=== PATIENT | male | born 1960 | race Caucasian/White ===

== ENCOUNTER 2018-02-18 12:37 | Inpatient (IN) | payer SELFPAY ==
[~2018-02-18] VITALS: Ht 162.6 cm; Wt 54.9 kg
[2018-02-18 15:22] LABS: CHLORIDE 85 mEq/L (98-107)
[2018-02-18 15:24] LABS: HEMATOCRIT. 28.7 % (42.0-52.0); MEAN CORPUSCULAR HEMOGLOBIN 34.8 pg (28.0-32.0); MEAN CORPUSCULAR VOLUME 100.1 fL (80.0-94.0); MEAN PLATELET VOLUME 9.9 fl (7.4-10.4); PLATELET 161 x1000/uL (130-400); RED BLOOD CELL COUNT 2.87 mill/uL (4.7-6.1); RED CELL DISTRIBUTION WIDTH 14.2 % (11.6-14.6)
[2018-02-18 15:26] LABS: ETHANOL BLOOD 37 mg/dL
[2018-02-18 16:56] LABS: CLARITY URINE CLEAR (CLEAR); COLOR URINE DARK YELLOW (YELLOW); KETONES URINE 4+ (NEGATIVE); LEUKOCYTE ESTERASE URINE NEGATIVE (NEGATIVE); NITRITE URINE NEGATIVE (NEGATIVE); OCCULT BLOOD URINE 3+ (NEGATIVE); PH URINE 5.5 (4.5-8.0); PROTEIN URINE 2+ (NEGATIVE)
[2018-02-18 17:10] LABS: *AMPHETAMINES SCREEN URINE NEGATIVE (NEGATIVE); *BARBITURATES SCREEN URINE NEGATIVE (NEGATIVE); *BENZODIAZEPINES SCREEN URINE NEGATIVE (NEGATIVE); *COCAINE SCREEN URINE NEGATIVE (NEGATIVE); METHADONE URINE SCREEN NEGATIVE (NEGATIVE); OPIATES URINE SCREEN NEGATIVE (NEGATIVE)
[2018-02-18 17:11] LABS: CANNABINOID URINE SCREEN NEGATIVE (NEGATIVE); PHENCYCLIDINE URINE SCREEN NEGATIVE (NEGATIVE)
[2018-02-18 17:39] LABS: PLATELET ESTIMATE NORMAL
[2018-02-18] MEDS ORDERED: LORAZEPAM 2MG/ML CPJ IV ONE ×2 (19:30→20:30)
[2018-02-18] MEDS ORDERED: POTASSIUM CHLORIDE 20MEQ TABLET SR PO ONE (20:30)
[2018-02-18] MEDS ORDERED: FOLIC ACID 1 MG, THIAMINE HCL 100 MG, MVI, ADULT NO.1 10 ML in DEXTROSE 5% WATER 1,000 ML IV ONE ×4 (20:30)
[2018-02-18] MEDS ORDERED: SODIUM CHLORIDE 0.9% 1,000 ML IV ONE (20:30)
[2018-02-19] MEDS ORDERED: LORAZEPAM 2MG/ML CPJ IV ONE ×2 (04:45→16:45)
[2018-02-19] MEDS ORDERED: LORAZEPAM 1MG TABLET PO ONE (13:30)
[2018-02-19] MEDS ORDERED: SODIUM CHLORIDE 0.9% 1,000 ML IV ONE (16:43)
[2018-02-19] MEDS ORDERED: FOLIC ACID 1 MG, THIAMINE HCL 100 MG, MVI, ADULT NO.1 10 ML in DEXTROSE 5% WATER 1,000 ML IV ONE ×4 (16:45)
[2018-02-19 17:21] LABS: CHLORIDE 90 mEq/L (98-107)
[2018-02-19] MEDS ORDERED: KCL 20MEQ/100ML PREMIX 100 ML IV ONE (17:30)
[2018-02-19] MEDS ORDERED: MAGNESIUM 2 G PREMIX 50 ML IV ONE (17:30)
[2018-02-19 17:33] LABS: HEMATOCRIT. 26.8 % (42.0-52.0); HEMOGLOBIN. 9.7 g/dL (14.0-18.0); MEAN CORPUSCULAR HEMOGLOBIN 35.1 pg (28.0-32.0); MEAN CORPUSCULAR VOLUME 97.5 fL (80.0-94.0); MEAN PLATELET VOLUME 9.1 fl (7.4-10.4); PLATELET 212 x1000/uL (130-400); RED BLOOD CELL COUNT 2.75 mill/uL (4.7-6.1); RED CELL DISTRIBUTION WIDTH 14.3 % (11.6-14.6)
[2018-02-19 18:12] LABS: PLATELET ESTIMATE NORMAL
[2018-02-20 01:56] VITALS: BP 99/62
[2018-02-20] MEDS ORDERED: NA PHOS,M-B/NA PHOS,DI-BA ENEMA 118ML PR PRN (02:00)
[2018-02-20] MEDS ORDERED: ONDANSETRON HCL 4MG/2ML VIAL IV PRN (02:00)
[2018-02-20] MEDS ORDERED: GUAIFENESIN 200MG/10ML SUGAR FREE UDC PO PRN (02:00)
[2018-02-20] MEDS ORDERED: IPRATROPIUM/ALBUTEROL 0.5-3(2.5)MG/3ML NEB INH PRN (02:00)
[2018-02-20] MEDS ORDERED: LORAZEPAM 2MG/ML CPJ IV PRN (02:00)
[2018-02-20] MEDS ORDERED: CLONIDINE 0.1MG TABLET PO PRN (02:00)
[2018-02-20] MEDS ORDERED: ACETAMINOPHEN 325MG TABLET PO PRN (02:00)
[2018-02-20] MEDS ORDERED: DIPHENHYDRAMINE 50MG/ML VIAL IV PRN (02:00)
[2018-02-20] MEDS ORDERED: DOCUSATE SODIUM 100MG CAPSULE PO PRN (02:00)
[2018-02-20] MEDS ORDERED: MAGNESIUM/ALUMINUM HYDROXIDE/SIMETHICONE 30ML UDC PO PRN (02:00)
[2018-02-20] MEDS ORDERED: ACETAMINOPHEN 650MG SUPP PR PRN (02:00)
[2018-02-20] MEDS ORDERED: ACETAMINOPHEN 650MG/20.3ML UDC GT PRN (02:00)
[2018-02-20] MEDS ORDERED: METHYLPREDNISOLONE SOD SUCC 125 MG/2 ML VIAL IV SCH (03:00)
[2018-02-20] MEDS: SODIUM CHLORIDE 0.9% INJ 3ML FLUSH IVF SCH ×2 (03:03→14:00)
[2018-02-20 04:00] VITALS: BP 94/57
[2018-02-20] MEDS: CHLORDIAZEPOXIDE 25MG CAPSULE PO SCH ×3 (04:55→21:32)
[2018-02-20] MEDS: DEXT 5%/0.45% NACL 1000ML 1,000 ML IV SCH ×2 (04:55→20:36)
[2018-02-20] MEDS ORDERED: MVI, ADULT NO.1 10 ML, FOLIC ACID 1 MG, THIAMINE HCL 100 MG in SODIUM CHLORIDE 0.9% 1,0... IV SCH ×4 (05:00)
[2018-02-20 08:00] VITALS: BP 100/71
[2018-02-20] MEDS ORDERED: ENOXAPARIN 40MG/0.4ML SYR SUBCUT SCH (09:00)
[2018-02-20] MEDS: FAMOTIDINE 20MG/2ML VIAL IV SCH ×2 (09:58→21:32)
[2018-02-20 12:00] VITALS: BP 98/67
[2018-02-20 16:35] VITALS: BP 97/62
[2018-02-20 19:30] LABS: CLARITY URINE CLEAR (CLEAR); COLOR URINE YELLOW (YELLOW); KETONES URINE NEGATIVE (NEGATIVE); LEUKOCYTE ESTERASE URINE NEGATIVE (NEGATIVE); NITRITE URINE NEGATIVE (NEGATIVE); OCCULT BLOOD URINE NEGATIVE (NEGATIVE); PH URINE 7.5 (4.5-8.0); PROTEIN URINE NEGATIVE (NEGATIVE); SPECIFIC GRAVITY URINE 1.011 (1.005-1.030)
[2018-02-20 19:38] LABS: *AMPHETAMINES SCREEN URINE NEGATIVE (NEGATIVE); *BARBITURATES SCREEN URINE NEGATIVE (NEGATIVE); *BENZODIAZEPINES SCREEN URINE NEGATIVE (NEGATIVE); *COCAINE SCREEN URINE NEGATIVE (NEGATIVE); METHADONE URINE SCREEN NEGATIVE (NEGATIVE); OPIATES URINE SCREEN NEGATIVE (NEGATIVE)
[2018-02-20 19:39] LABS: CANNABINOID URINE SCREEN NEGATIVE (NEGATIVE); PHENCYCLIDINE URINE SCREEN NEGATIVE (NEGATIVE)
[2018-02-20 19:58] LABS: CHLORIDE 98 mEq/L (98-107)
[2018-02-20 20:00] VITALS: BP 102/65
[2018-02-20 20:05] LABS: HEMATOCRIT. 24.7 % (42.0-52.0); HEMOGLOBIN. 8.8 g/dL (14.0-18.0); MEAN CORPUSCULAR HEMOGLOBIN 34.8 pg (28.0-32.0); MEAN CORPUSCULAR VOLUME 97.8 fL (80.0-94.0); MEAN PLATELET VOLUME 9.1 fl (7.4-10.4); PLATELET 225 x1000/uL (130-400); RED BLOOD CELL COUNT 2.52 mill/uL (4.7-6.1); RED CELL DISTRIBUTION WIDTH 14.4 % (11.6-14.6)
[2018-02-20] MEDS ORDERED: POTASSIUM CHLORIDE 20MEQ TABLET SR PO SCH (20:15)
[2018-02-20 21:25] LABS: PLATELET ESTIMATE NORMAL
[2018-02-21] VITALS: BP 97/64
[2018-02-21] MEDS: DEXT 5%/0.45% NACL 1000ML 1,000 ML IV SCH ×4 (01:50→17:22)
[2018-02-21 04:00] VITALS: BP 95/66
[2018-02-21] MEDS: CHLORDIAZEPOXIDE 25MG CAPSULE PO SCH ×3 (05:22→21:03)
[2018-02-21 06:45] LABS: BASOPHILS % 0.4 % (0.0-2.0); EOSINOPHILS % 3.2 % (0.0-5.0); HEMATOCRIT. 22.6 % (42.0-52.0); HEMOGLOBIN. 8.1 g/dL (14.0-18.0); LYMPHOCYTES % 10.3 % (20.0-50.0); MEAN CORPUSCULAR HEMOGLOBIN 35.4 pg (28.0-32.0); MEAN CORPUSCULAR VOLUME 98.3 fL (80.0-94.0); MEAN PLATELET VOLUME 8.7 fl (7.4-10.4); MONOCYTES % 14.9 % (2.0-8.0); NEUTROPHILS % 71.2 % (40.0-76.0); PLATELET 224 x1000/uL (130-400); RED CELL DISTRIBUTION WIDTH 14.7 % (11.6-14.6)
[2018-02-21 06:55] LABS: CHLORIDE 99 mEq/L (98-107)
[2018-02-21 07:06] LABS: LDL CHOLESTEROL 35 mg/dL (5-100)
[2018-02-21 07:08] LABS: HDL CHOLESTEROL 34 mg/dL (40-59)
[2018-02-21 08:00] VITALS: BP 93/61
[2018-02-21] MEDS ORDERED: POTASSIUM CHLORIDE 20MEQ TABLET SR PO SCH ×3 (08:00→12:00)
[2018-02-21 12:00] VITALS: BP 91/56
[2018-02-21] MEDS: PANTOPRAZOLE SODIUM 40 MG/VIAL IV SCH (12:39)
[2018-02-21 16:00] VITALS: BP 102/70
[2018-02-21] MEDS ORDERED: POTASSIUM CHLORIDE 20MEQ TABLET SR PO NR (16:45)
[2018-02-21 20:00] VITALS: BP 96/64
[2018-02-22] VITALS: BP 100/65
[2018-02-22 04:00] VITALS: BP 105/56
[2018-02-22] MEDS: CHLORDIAZEPOXIDE 25MG CAPSULE PO SCH ×3 (05:13→21:53)
[2018-02-22 08:00] VITALS: BP 88/54
[2018-02-22] MEDS: PANTOPRAZOLE SODIUM 40 MG/VIAL IV SCH (08:51)
[2018-02-22] MEDS ORDERED: POTASSIUM CHLORIDE 20MEQ TABLET SR PO PRN (09:00)
[2018-02-22 12:00] VITALS: BP 110/65
[2018-02-22 13:11] LABS: HEMOGLOBIN. 9.9 g/dL (14.0-18.0); MEAN CORPUSCULAR HEMOGLOBIN 35.2 pg (28.0-32.0); MEAN CORPUSCULAR VOLUME 99.9 fL (80.0-94.0); MEAN PLATELET VOLUME 8.2 fl (7.4-10.4); PLATELET 310 x1000/uL (130-400); RED CELL DISTRIBUTION WIDTH 15.7 % (11.6-14.6)
[2018-02-22 13:19] LABS: CHLORIDE 101 mEq/L (98-107)
[2018-02-22 13:48] LABS: PHOSPHORUS 0.2 mg/dL (2.5-4.9)
[2018-02-22 15:43] LABS: PLATELET ESTIMATE NORMAL
[2018-02-22 16:00] VITALS: BP 88/55
[2018-02-22] MEDS ORDERED: SODIUM PHOS,M-BASIC-D-BASIC 30 MM in DEXT 5% WATER 500 ML IV ONE (16:00)
[2018-02-22] MEDS: SODIUM CHLORIDE 0.9% 1,000 ML IV SCH (17:29)
[2018-02-22] MEDS ORDERED: MAGNESIUM 1 G PREMIX 100 ML IV NR (18:00)
[2018-02-22 20:00] VITALS: BP 88/49
[2018-02-23] VITALS (8 sets, daily range): BP systolic 82–106; BP diastolic 43–65
[2018-02-23] MEDS: SODIUM CHLORIDE 0.9% 1,000 ML IV SCH ×3 (01:21→21:28)
[2018-02-23] MEDS: CHLORDIAZEPOXIDE 25MG CAPSULE PO SCH ×3 (05:48→21:28)
[2018-02-23 06:32] LABS: CHLORIDE 100 mEq/L (98-107)
[2018-02-23 06:36] LABS: HEMOGLOBIN. 8.8 g/dL (14.0-18.0); MEAN CORPUSCULAR HEMOGLOBIN 35.9 pg (28.0-32.0); MEAN CORPUSCULAR VOLUME 101.3 fL (80.0-94.0); PLATELET 309 x1000/uL (130-400); RED BLOOD CELL COUNT 2.46 mill/uL (4.7-6.1); RED CELL DISTRIBUTION WIDTH 15.7 % (11.6-14.6)
[2018-02-23 06:44] LABS: PHOSPHORUS 2.4 mg/dL (2.5-4.9)
[2018-02-23] MEDS: FAMOTIDINE 20MG TABLET PO SCH ×2 (09:14→16:21)
[2018-02-23] MEDS ORDERED: POTASSIUM-SODIUM PHOSPHATE POWDER PACKET PO NR (13:30)
[2018-02-23] MEDS ORDERED: THIAMINE HCL 100MG TABLET PO NR (14:00)
[2018-02-23] MEDS: FOLIC ACID 1MG TABLET PO SCH (14:29)
[2018-02-23 16:29] LABS: PROTHROMBIN TIME 10.3 sec (9.4-11.6)
[2018-02-23 16:49] LABS: AMMONIA 38 uMol/L (<32)
[2018-02-23 16:50] LABS: LDL CHOLESTEROL 76 mg/dL (5-100)
[2018-02-23 16:52] LABS: HDL CHOLESTEROL 35 mg/dL (40-59)
[2018-02-23 16:56] LABS: PLATELET ESTIMATE NORMAL
[2018-02-24 00:15] VITALS: BP 99/61
[2018-02-24 06:02] LABS: HEMATOCRIT. 28.1 % (42.0-52.0); HEMOGLOBIN. 9.6 g/dL (14.0-18.0); MEAN CORPUSCULAR HEMOGLOBIN 34.8 pg (28.0-32.0); MEAN CORPUSCULAR VOLUME 102.1 fL (80.0-94.0); PLATELET 352 x1000/uL (130-400); RED BLOOD CELL COUNT 2.75 mill/uL (4.7-6.1); RED CELL DISTRIBUTION WIDTH 15.8 % (11.6-14.6)
[2018-02-24] MEDS: SODIUM CHLORIDE 0.9% 1,000 ML IV SCH ×2 (06:20→16:39)
[2018-02-24 06:46] LABS: CHLORIDE 105 mEq/L (98-107)
[2018-02-24 06:55] LABS: PHOSPHORUS 2.9 mg/dL (2.5-4.9)
[2018-02-24 07:23] LABS: PLATELET ESTIMATE NORMAL
[2018-02-24 08:36] VITALS: BP 117/84
[2018-02-24] MEDS: FAMOTIDINE 20MG TABLET PO SCH ×2 (08:48→17:00)
[2018-02-24] MEDS: FOLIC ACID 1MG TABLET PO SCH (08:48)
[2018-02-24 08:52] VITALS: BP 117/84
[2018-02-24] MEDS ORDERED: THIAMINE HCL 100MG TABLET PO SCH (09:00)
[2018-02-24 12:00] VITALS: BP_SYST 86; BP_SYST 90; BP_DIAS 50; BP_DIAS 57
[2018-02-24 16:00] VITALS: BP 90/54
[2018-02-24] MEDS: MIDODRINE HCL 5MG TABLET PO SCH ×2 (16:38→16:40)
[2018-02-24 16:48] VITALS: BP 96/64
== END 2018-02-24 18:30 | disposition home or self-care (01) | DRG 422 ==
LOC: ER 14:56 → 7WST 02-19 16:48 → EDBEDREQ 02-19 21:09 → ENRESERV 02-19 21:49 → 7WST 02-20 04:11
PROVIDERS: ADMIT Family Medicine; ATTEND Family Medicine
DX: E86.0 Dehydration (principal); E83.42 Hypomagnesemia; F10.239 Alcohol dependence with withdrawal, unspecified; E87.6 Hypokalemia; F17.210 Nicotine dependence, cigarettes, uncomplicated; R26.9 Unspecified abnormalities of gait and mobility; F10.229 Alcohol dependence with intoxication, unspecified; Z59.0 Homelessness
CPT/HCPCS: 36415; 70450; 71045; 76700; 80048; 80053; 80061; 80305; 80307; 80329; 81003; 82140; 83690; 83735; 84100; 84132; 84443; 84484; 85018; 85025; 85610; 93005; 96361; 96365; 96366; 96367; 96368; 96375; 96376; 97116; 97162; 97530; 99285; C9113; G0482; J1650; J2060; J2930; J3411; J3475; J3480; J3490; J7030; J7060; J7070

== ENCOUNTER 2018-03-05 09:30 | Emergency (ER) | payer SELFPAY ==
[~2018-03-05] VITALS: Ht 162.6 cm; Wt 70.0 kg
[2018-03-05] MEDS ORDERED: SODIUM CHLORIDE 0.9% 1,000 ML IV ONE (10:41)
[2018-03-05 16:00] VITALS: BP 106/69
== END 2018-03-05 15:30 | disposition home or self-care (01) ==
LOC: ER 09:40
DX: S00.81XA Abrasion of other part of head, initial encounter (principal); F10.229 Alcohol dependence with intoxication, unspecified; Y90.5 Blood alcohol level of 100-119 mg/100 ml; Y08.89XA Assault by other specified means, initial encounter; Y93.89 Activity, other specified; Y92.89 Other specified places as the place of occurrence of the external cause; Y99.8 Other external cause status
CPT/HCPCS: 36415; 70486; 99285; G0482; J7030; Z7610